=== PATIENT | female | born 1950 | race Caucasian/White ===

== ENCOUNTER 2017-07-08 21:45 | Inpatient (IN) | payer MEDICAID, OTHER ==
[~2017-07-08] VITALS: Ht 172.7 cm; Wt 82.3 kg
[~2017-07-08 21:45] MED LIST: ASPI-621 PO; ATOR-2 PO; CARB1TAB2 PO; DULO20CA45 PO; ENAL20TA PO; FURO40TA6 PO; GABA-827 PO; METF10002 PO; METO-95 PO; SPIR25TA3 PO; TEMA15CA PO; WARF4TAB7 PO; WARF5TAB7 PO
[2017-07-08 22:32] LABS: HEMATOCRIT 49.8 % (34.6-47.8); HEMOGLOBIN 15.6 g/dL (11.7-16.4); WHITE BLOOD COUNT 8.6 x10^3/uL (3.4-10)
[2017-07-08 22:37] LABS: ASPARTATE AMINO TRANSFERASE 21 U/L (15-37); BLOOD UREA NITROGEN 37 mg/dL (7-18)
[2017-07-08 22:44] LABS: IS PT STATUS REG ER OR PRE ER? YES
[2017-07-08] MEDS ORDERED: FUROSEMIDE 40 MG/4 ML IV ONE (23:00)
[2017-07-08] MEDS ORDERED: FUROSEMIDE 40 MG/4 ML ONE (23:01)
[2017-07-08] MEDS ORDERED: HEPARIN 25,000 UNITS/500ML PMX 500 ML ONE (23:30)
[2017-07-08] MEDS ORDERED: HEPARIN 25,000 UNITS/500ML PMX 500 ML IV PRN (23:30)
[2017-07-08] MEDS ORDERED: HEPARIN 5,000 UNITS/ML, 1ML IV ONE ×2 (23:30→23:45)
[2017-07-08] MEDS ORDERED: CEFTRIAXONE PMX 1GM/50ML 50 ML IV ONE (23:30)
[2017-07-08] MEDS ORDERED: HEPARIN 5,000 UNITS/ML, 1ML IV PRN (23:30)
[2017-07-08] MEDS ORDERED: HEPARIN 5,000 UNITS/ML, 1ML ONE (23:30)
[2017-07-08] MEDS ORDERED: CEFTRIAXONE PMX 2GM/50ML 0 ML ONE (23:40)
[2017-07-08] MEDS ORDERED: CEFTRIAXONE PMX 1GM/50ML 50 ML ONE (23:43)
[2017-07-09] MEDS ORDERED: DEXTROSE 4 GM TAB.CHEW PO PRN
[2017-07-09] MEDS ORDERED: morphine SULFATE 10 MG/ML, 1ML IVPush PRN
[2017-07-09] MEDS ORDERED: GLUCAGON 1 MG IM PRN
[2017-07-09] MEDS ORDERED: FLUCONAZOLE 200 MG/100 ML 100 ML IV ONE
[2017-07-09] MEDS ORDERED: DOCUSATE 100 MG CAPSULE PO PRN
[2017-07-09] MEDS ORDERED: HYDROcodone/APAP 5/325 TABLET PO PRN
[2017-07-09] MEDS ORDERED: POLYETHYLENE GLYCOL 17 GM PACKET PO PRN
[2017-07-09] MEDS ORDERED: DEXTROSE 50%, 50ML SYRINGE IVPush PRN
[2017-07-09] MEDS ORDERED: PROMETHAZINE 25 MG/ML, 1ML IM PRN
[2017-07-09] MEDS ORDERED: BISACODYL 10 MG SUPP PR PRN
[2017-07-09] MEDS ORDERED: ONDANSETRON 2MG/ML, 2ML IVPush PRN
[2017-07-09] MEDS ORDERED: NITROGLYCERIN 0.4 MG BOTTLE (25 TABS) SL PRN
[2017-07-09] MEDS: HEPARIN 25,000 UNITS/500ML PMX 500 ML IV PRN ×2 (00:20→23:40)
[2017-07-09] MEDS: ATORVASTATIN 80 MG TABLET PO SCH ×2 (01:52→21:50)
[2017-07-09 02:07] VITALS: BP 139/81
[2017-07-09 05:21] LABS: HEMATOCRIT 48.2 % (34.6-47.8); HEMOGLOBIN 14.9 g/dL (11.7-16.4); WHITE BLOOD COUNT 9.4 x10^3/uL (3.4-10)
[2017-07-09 05:38] LABS: BLOOD UREA NITROGEN 37 mg/dL (7-18)
[2017-07-09 05:39] LABS: IS PT STATUS REG ER OR PRE ER? NO
[2017-07-09] MEDS: INSULIN ASPART 100 UNITS/ML, PEN SQ-INSULIN SCH ×4 (07:00→21:51)
[2017-07-09 07:35] VITALS: BP 136/91
[2017-07-09] MEDS: HEPARIN 5,000 UNITS/ML, 1ML IV PRN ×3 (08:16→21:50)
[2017-07-09] MEDS ORDERED: METOPROLOL SUCCINATE 100 MG TAB.ER.24H PO SCH (09:00)
[2017-07-09] MEDS: SPIRONOLACTONE 25 MG TABLET PO SCH ×2 (09:00→12:08)
[2017-07-09] MEDS ORDERED: REGADENOSON 0.4 MG/5 ML SYRINGE ONE (10:15)
[2017-07-09] MEDS: FUROSEMIDE 40 MG/4 ML IV SCH ×2 (11:43→16:35)
[2017-07-09] MEDS: ASPIRIN 81 MG TABLET EC PO SCH (11:43)
[2017-07-09] MEDS: CARBIDOPA/LEVODOPA 25 MG/100 MG TABLET PO SCH ×3 (11:43→21:50)
[2017-07-09] MEDS: GABAPENTIN 400 MG CAPSULE PO SCH ×3 (11:43→21:50)
[2017-07-09] MEDS: SODIUM CHLORIDE FLUSH 10ML SYR IVF SCH ×2 (11:43→21:52)
[2017-07-09] MEDS: DULOXETINE 20 MG CAPSULE.DR PO SCH (11:44)
[2017-07-09] MEDS: ENALAPRIL 20MG TABLET PO SCH (11:44)
[2017-07-09] MEDS: CEFTRIAXONE PMX 1GM/50ML 50 ML IV SCH ×3 (11:45→23:41)
[2017-07-09 11:53] LABS: IS PT STATUS REG ER OR PRE ER? NO
[2017-07-09 13:56] VITALS: BP 99/60
[2017-07-09 19:12] VITALS: BP 96/60
[2017-07-09] MEDS ORDERED: TEMAZEPAM 15 MG CAPSULE PO PRN (21:00)
[2017-07-10] MEDS: FLUCONAZOLE 100MG/50ML 100 MG in BAG 1 EACH IV SCH (00:20)
[2017-07-10 00:58] VITALS: BP 96/58
[2017-07-10] MEDS: HEPARIN 5,000 UNITS/ML, 1ML IV PRN ×2 (04:37→16:23)
[2017-07-10 05:39] LABS: IS PT STATUS REG ER OR PRE ER? NO
[2017-07-10 05:42] LABS: BLOOD UREA NITROGEN 42 mg/dL (7-18)
[2017-07-10 05:50] LABS: HEMATOCRIT 44.5 % (34.6-47.8); HEMOGLOBIN 13.7 g/dL (11.7-16.4); WHITE BLOOD COUNT 10.6 x10^3/uL (3.4-10)
[2017-07-10 07:15] VITALS: BP 92/61
[2017-07-10] MEDS: SPIRONOLACTONE 25 MG TABLET PO SCH (08:30)
[2017-07-10] MEDS: ASPIRIN 81 MG TABLET EC PO SCH (08:30)
[2017-07-10] MEDS: DULOXETINE 20 MG CAPSULE.DR PO SCH (08:30)
[2017-07-10] MEDS: CARBIDOPA/LEVODOPA 25 MG/100 MG TABLET PO SCH ×3 (08:30→20:24)
[2017-07-10] MEDS: GABAPENTIN 400 MG CAPSULE PO SCH ×3 (08:30→20:24)
[2017-07-10] MEDS: FUROSEMIDE 40 MG/4 ML IV SCH ×2 (08:31→16:17)
[2017-07-10] MEDS: SODIUM CHLORIDE FLUSH 10ML SYR IVF SCH ×2 (08:31→20:24)
[2017-07-10] MEDS: INSULIN ASPART 100 UNITS/ML, PEN SQ-INSULIN SCH ×4 (08:32→20:23)
[2017-07-10] MEDS: METOPROLOL SUCCINATE 100 MG TAB.ER.24H PO SCH (09:00)
[2017-07-10] MEDS: CEFTRIAXONE PMX 1GM/50ML 50 ML IV SCH (12:21)
[2017-07-10 13:01] VITALS: BP 95/55
[2017-07-10] MEDS: HEPARIN 25,000 UNITS/500ML PMX 500 ML IV PRN (16:17)
[2017-07-10 18:29] VITALS: BP 105/61
[2017-07-10] MEDS: ENALAPRIL 20MG TABLET PO SCH (20:24)
[2017-07-10] MEDS: ATORVASTATIN 80 MG TABLET PO SCH (20:24)
[2017-07-11] MEDS: CEFTRIAXONE PMX 1GM/50ML 50 ML IV SCH ×3 (00:08→23:51)
[2017-07-11] MEDS: FLUCONAZOLE 100MG/50ML 100 MG in BAG 1 EACH IV SCH (01:02)
[2017-07-11 01:04] VITALS: BP 96/56
[2017-07-11 05:12] LABS: BLOOD UREA NITROGEN 41 mg/dL (7-18); WHITE BLOOD COUNT 9.9 x10^3/uL (3.4-10)
[2017-07-11] MEDS: HEPARIN 25,000 UNITS/500ML PMX 500 ML IV PRN (06:07)
[2017-07-11 07:31] VITALS: BP 100/58
[2017-07-11] MEDS ORDERED: POTASSIUM CHLORIDE 20 MEQ TAB.ER.PRT PO ONE (08:30)
[2017-07-11] MEDS: METOPROLOL SUCCINATE 100 MG TAB.ER.24H PO SCH (09:00)
[2017-07-11] MEDS: SODIUM CHLORIDE FLUSH 10ML SYR IVF SCH ×2 (09:00→21:05)
[2017-07-11] MEDS: SPIRONOLACTONE 25 MG TABLET PO SCH (09:03)
[2017-07-11] MEDS: GABAPENTIN 400 MG CAPSULE PO SCH ×3 (09:03→21:04)
[2017-07-11] MEDS: ASPIRIN 81 MG TABLET EC PO SCH (09:03)
[2017-07-11] MEDS: INSULIN ASPART 100 UNITS/ML, PEN SQ-INSULIN SCH ×4 (09:03→21:04)
[2017-07-11] MEDS: CARBIDOPA/LEVODOPA 25 MG/100 MG TABLET PO SCH ×3 (09:03→21:04)
[2017-07-11] MEDS: FUROSEMIDE 40 MG/4 ML IV SCH ×2 (09:04→17:24)
[2017-07-11] MEDS: HEPARIN 5,000 UNITS/ML, 1ML SQ SCH ×2 (09:04→17:24)
[2017-07-11] MEDS: ENALAPRIL 5MG TABLET PO SCH ×2 (09:04→21:04)
[2017-07-11] MEDS: DULOXETINE 20 MG CAPSULE.DR PO SCH (09:04)
[2017-07-11] MEDS ORDERED: FUROSEMIDE 40 MG/4 ML IV ONE (12:30)
[2017-07-11 13:26] VITALS: BP 101/60
[2017-07-11 20:13] VITALS: BP 109/57
[2017-07-11] MEDS: ATORVASTATIN 80 MG TABLET PO SCH (21:11)
[2017-07-12 01:00] VITALS: BP 118/75
[2017-07-12] MEDS: FLUCONAZOLE 100MG/50ML 100 MG in BAG 1 EACH IV SCH (01:10)
[2017-07-12] MEDS: HEPARIN 5,000 UNITS/ML, 1ML SQ SCH ×3 (01:10→16:39)
[2017-07-12 05:09] LABS: BLOOD UREA NITROGEN 39 mg/dL (7-18)
[2017-07-12 05:12] LABS: HEMATOCRIT 42.1 % (34.6-47.8); WHITE BLOOD COUNT 7.3 x10^3/uL (3.4-10)
[2017-07-12 06:25] VITALS: BP 126/71
[2017-07-12] MEDS: METOPROLOL SUCCINATE 25 MG TAB.ER.24H PO SCH (06:26)
[2017-07-12 07:06] VITALS: BP 123/65
[2017-07-12] MEDS: DULOXETINE 20 MG CAPSULE.DR PO SCH (08:46)
[2017-07-12] MEDS: SPIRONOLACTONE 25 MG TABLET PO SCH (08:46)
[2017-07-12] MEDS: ASPIRIN 81 MG TABLET EC PO SCH (08:46)
[2017-07-12] MEDS: CARBIDOPA/LEVODOPA 25 MG/100 MG TABLET PO SCH ×3 (08:46→22:13)
[2017-07-12] MEDS: POTASSIUM CHLORIDE 20 MEQ TAB.ER.PRT PO SCH (08:46)
[2017-07-12] MEDS: GABAPENTIN 400 MG CAPSULE PO SCH ×3 (08:46→22:14)
[2017-07-12] MEDS: FUROSEMIDE 40 MG/4 ML IV SCH ×3 (08:46→22:13)
[2017-07-12] MEDS: INSULIN ASPART 100 UNITS/ML, PEN SQ-INSULIN SCH ×4 (08:46→22:17)
[2017-07-12] MEDS: SODIUM CHLORIDE FLUSH 10ML SYR IVF SCH ×2 (08:47→22:12)
[2017-07-12] MEDS: ENALAPRIL 5MG TABLET PO SCH ×2 (08:47→22:14)
[2017-07-12] MEDS: CEFTRIAXONE PMX 1GM/50ML 50 ML IV SCH (11:59)
[2017-07-12 14:50] VITALS: BP 132/78
[2017-07-12] MEDS: MICAFUNGIN 50 MG in SODIUM CHLORIDE 0.9% 100 ML IV SCH (18:18)
[2017-07-12 20:40] VITALS: BP 139/70
[2017-07-12] MEDS: ATORVASTATIN 80 MG TABLET PO SCH (22:14)
[2017-07-13 00:45] VITALS: BP 138/82
[2017-07-13] MEDS: HEPARIN 5,000 UNITS/ML, 1ML SQ SCH ×3 (01:10→16:41)
[2017-07-13] MEDS: CEFTRIAXONE PMX 1GM/50ML 50 ML IV SCH ×2 (01:10→11:44)
[2017-07-13 05:50] LABS: HEMATOCRIT 43.3 % (34.6-47.8); HEMOGLOBIN 13.3 g/dL (11.7-16.4); WHITE BLOOD COUNT 7.1 x10^3/uL (3.4-10)
[2017-07-13 05:55] LABS: BLOOD UREA NITROGEN 32 mg/dL (7-18)
[2017-07-13] MEDS: POTASSIUM CHLORIDE 20 MEQ TAB.ER.PRT PO SCH (07:59)
[2017-07-13] MEDS: CARBIDOPA/LEVODOPA 25 MG/100 MG TABLET PO SCH ×3 (07:59→20:47)
[2017-07-13] MEDS: ASPIRIN 81 MG TABLET EC PO SCH (07:59)
[2017-07-13] MEDS: DULOXETINE 20 MG CAPSULE.DR PO SCH (07:59)
[2017-07-13] MEDS: FUROSEMIDE 40 MG/4 ML IV SCH ×3 (07:59→20:49)
[2017-07-13] MEDS: METOPROLOL SUCCINATE 25 MG TAB.ER.24H PO SCH (08:00)
[2017-07-13] MEDS: GABAPENTIN 400 MG CAPSULE PO SCH ×3 (08:00→20:49)
[2017-07-13] MEDS: SPIRONOLACTONE 25 MG TABLET PO SCH (08:00)
[2017-07-13] MEDS: ENALAPRIL 5MG TABLET PO SCH ×2 (08:02→20:49)
[2017-07-13] MEDS: INSULIN ASPART 100 UNITS/ML, PEN SQ-INSULIN SCH ×4 (08:03→20:46)
[2017-07-13] MEDS: SODIUM CHLORIDE FLUSH 10ML SYR IVF SCH ×2 (08:03→20:47)
[2017-07-13 08:16] VITALS: BP 129/80
[2017-07-13] MEDS ORDERED: FUROSEMIDE 40 MG/4 ML IV ONE (09:00)
[2017-07-13 14:27] VITALS: BP 140/79
[2017-07-13] MEDS: MICAFUNGIN 50 MG in SODIUM CHLORIDE 0.9% 100 ML IV SCH (16:41)
[2017-07-13 19:10] VITALS: BP 146/78
[2017-07-13] MEDS: ATORVASTATIN 80 MG TABLET PO SCH (20:46)
[2017-07-14] MEDS: CEFTRIAXONE PMX 1GM/50ML 50 ML IV SCH ×2 (00:05→12:20)
[2017-07-14] MEDS: HEPARIN 5,000 UNITS/ML, 1ML SQ SCH ×3 (00:05→20:30)
[2017-07-14 01:30] VITALS: BP 125/69
[2017-07-14] MEDS: METOPROLOL SUCCINATE 50 MG TAB.ER.24H PO SCH (06:20)
[2017-07-14 07:54] VITALS: BP 127/78
[2017-07-14 08:39] LABS: BLOOD UREA NITROGEN 26 mg/dL (7-18)
[2017-07-14] MEDS: FUROSEMIDE 40 MG/4 ML IV SCH ×2 (10:25→20:28)
[2017-07-14] MEDS: INSULIN ASPART 100 UNITS/ML, PEN SQ-INSULIN SCH ×4 (10:27→20:32)
[2017-07-14] MEDS: SPIRONOLACTONE 25 MG TABLET PO SCH (10:29)
[2017-07-14] MEDS: ASPIRIN 81 MG TABLET EC PO SCH (10:29)
[2017-07-14] MEDS: DULOXETINE 20 MG CAPSULE.DR PO SCH (10:29)
[2017-07-14] MEDS: CARBIDOPA/LEVODOPA 25 MG/100 MG TABLET PO SCH ×3 (10:29→20:29)
[2017-07-14] MEDS: GABAPENTIN 400 MG CAPSULE PO SCH ×3 (10:29→20:29)
[2017-07-14] MEDS: ENALAPRIL 5MG TABLET PO SCH ×2 (10:29→20:29)
[2017-07-14] MEDS: SODIUM CHLORIDE FLUSH 10ML SYR IVF SCH ×2 (10:29→20:28)
[2017-07-14] MEDS: POTASSIUM CHLORIDE 20 MEQ TAB.ER.PRT PO SCH (10:37)
[2017-07-14] MEDS: INSULIN DETEMIR 100 UNITS/ML, PEN SQ-INSULIN SCH (12:21)
[2017-07-14 13:10] VITALS: BP 144/80
[2017-07-14] MEDS: MICAFUNGIN 50 MG in SODIUM CHLORIDE 0.9% 100 ML IV SCH (17:48)
[2017-07-14 19:15] VITALS: BP 128/68
[2017-07-14] MEDS: ATORVASTATIN 80 MG TABLET PO SCH (22:01)
[2017-07-15] MEDS: CEFTRIAXONE PMX 1GM/50ML 50 ML IV SCH ×2 (00:10→12:42)
[2017-07-15] MEDS: INSULIN DETEMIR 100 UNITS/ML, PEN SQ-INSULIN SCH ×2 (00:11→11:49)
[2017-07-15 02:52] VITALS: BP 128/80
[2017-07-15 06:16] LABS: BLOOD UREA NITROGEN 28 mg/dL (7-18)
[2017-07-15] MEDS: METOPROLOL SUCCINATE 50 MG TAB.ER.24H PO SCH (06:22)
[2017-07-15] MEDS: HEPARIN 5,000 UNITS/ML, 1ML SQ SCH ×3 (06:22→21:44)
[2017-07-15 07:04] VITALS: BP 123/73
[2017-07-15] MEDS: SODIUM CHLORIDE 0.9% 1,000 ML IV ONE (08:11)
[2017-07-15] MEDS: INSULIN ASPART 100 UNITS/ML, PEN SQ-INSULIN SCH ×4 (09:07→21:44)
[2017-07-15] MEDS: CARBIDOPA/LEVODOPA 25 MG/100 MG TABLET PO SCH ×3 (09:07→21:45)
[2017-07-15] MEDS: ENALAPRIL 5MG TABLET PO SCH ×2 (09:07→21:45)
[2017-07-15] MEDS: SODIUM CHLORIDE FLUSH 10ML SYR IVF SCH ×2 (09:08→21:45)
[2017-07-15] MEDS: GABAPENTIN 400 MG CAPSULE PO SCH ×3 (09:08→21:45)
[2017-07-15] MEDS: DULOXETINE 20 MG CAPSULE.DR PO SCH (09:08)
[2017-07-15] MEDS: SPIRONOLACTONE 25 MG TABLET PO SCH (09:08)
[2017-07-15] MEDS: ASPIRIN 81 MG TABLET EC PO SCH (09:08)
[2017-07-15] MEDS: POTASSIUM CHLORIDE 20 MEQ TAB.ER.PRT PO SCH (09:58)
[2017-07-15] MEDS: FUROSEMIDE 40 MG/4 ML IV SCH ×2 (09:59→21:44)
[2017-07-15 14:31] VITALS: BP 122/74
[2017-07-15] MEDS: MICAFUNGIN 50 MG in SODIUM CHLORIDE 0.9% 100 ML IV SCH (17:41)
[2017-07-15 19:26] VITALS: BP 115/78
[2017-07-15] MEDS: ATORVASTATIN 80 MG TABLET PO SCH (21:45)
[2017-07-16] MEDS: CEFTRIAXONE PMX 1GM/50ML 50 ML IV SCH ×2 (00:17→17:30)
[2017-07-16 01:09] VITALS: BP 110/69
[2017-07-16 05:41] LABS: BLOOD UREA NITROGEN 26 mg/dL (7-18)
[2017-07-16 06:11] LABS: HEMOGLOBIN 13.2 g/dL (11.7-16.4)
[2017-07-16] MEDS: METOPROLOL SUCCINATE 50 MG TAB.ER.24H PO SCH (06:15)
[2017-07-16] MEDS: INSULIN ASPART 100 UNITS/ML, PEN SQ-INSULIN SCH ×5 (07:00→21:32)
[2017-07-16] MEDS ORDERED: MAGNESIUM SULFATE PMX 2GM/50ML 50 ML IV ONE ×2 (08:00→12:30)
[2017-07-16 08:30] VITALS: BP 106/60
[2017-07-16] MEDS: GABAPENTIN 400 MG CAPSULE PO SCH ×3 (09:00→21:31)
[2017-07-16] MEDS: CARBIDOPA/LEVODOPA 25 MG/100 MG TABLET PO SCH ×3 (09:00→21:31)
[2017-07-16] MEDS ORDERED: MIDAZOLAM 1 MG/ML, 5ML ONE (11:35)
[2017-07-16] MEDS ORDERED: FENTANYL PF 100 MCG/2ML ONE (11:35)
[2017-07-16] MEDS ORDERED: BIVALIRUDIN 250 MG ONE (11:36)
[2017-07-16] MEDS ORDERED: HEPARIN 1,000 UNITS/ML, 10ML ONE (11:36)
[2017-07-16] MEDS ORDERED: TICAGRELOR 90 MG TABLET ONE (11:36)
[2017-07-16] MEDS ORDERED: LIDOCAINE 2%, 20ML ONE (11:36)
[2017-07-16 14:30] VITALS: BP 145/93
[2017-07-16] MEDS: POTASSIUM CHLORIDE 20 MEQ TAB.ER.PRT PO SCH (14:36)
[2017-07-16] MEDS: FUROSEMIDE 40 MG/4 ML IV SCH (14:37)
[2017-07-16] MEDS: SPIRONOLACTONE 25 MG TABLET PO SCH (14:38)
[2017-07-16] MEDS: DULOXETINE 20 MG CAPSULE.DR PO SCH (14:38)
[2017-07-16] MEDS: SODIUM CHLORIDE FLUSH 10ML SYR IVF SCH ×2 (14:38→21:31)
[2017-07-16] MEDS: ASPIRIN 81 MG TABLET EC PO SCH (14:38)
[2017-07-16] MEDS: ENALAPRIL 5MG TABLET PO SCH ×2 (14:39→21:31)
[2017-07-16] MEDS: INSULIN DETEMIR 100 UNITS/ML, PEN SQ-INSULIN SCH ×3 (14:40→21:32)
[2017-07-16] MEDS: MICAFUNGIN 50 MG in SODIUM CHLORIDE 0.9% 100 ML IV SCH (18:21)
[2017-07-16 19:06] VITALS: BP 122/72
[2017-07-16] MEDS: ATORVASTATIN 80 MG TABLET PO SCH (21:31)
[2017-07-16] MEDS: ACETAMINOPHEN 325 MG TABLET PO PRN (21:31)
[2017-07-17] MEDS: FUROSEMIDE 40 MG/4 ML IV SCH ×2 (01:32→08:45)
[2017-07-17 02:11] VITALS: BP 115/57
[2017-07-17] MEDS: CEFTRIAXONE PMX 1GM/50ML 50 ML IV SCH ×2 (04:39→16:31)
[2017-07-17 05:08] LABS: BLOOD UREA NITROGEN 25 mg/dL (7-18)
[2017-07-17 05:38] LABS: HEMATOCRIT 43.9 % (34.6-47.8); HEMOGLOBIN 13.5 g/dL (11.7-16.4); WHITE BLOOD COUNT 7.1 x10^3/uL (3.4-10)
[2017-07-17] MEDS: ACETAMINOPHEN 325 MG TABLET PO PRN (06:33)
[2017-07-17] MEDS: METOPROLOL SUCCINATE 50 MG TAB.ER.24H PO SCH (06:33)
[2017-07-17] MEDS: INSULIN ASPART 100 UNITS/ML, PEN SQ-INSULIN SCH ×4 (06:37→20:21)
[2017-07-17 07:30] VITALS: BP 128/66
[2017-07-17] MEDS: ASPIRIN 81 MG TABLET EC PO SCH (08:45)
[2017-07-17] MEDS: SPIRONOLACTONE 25 MG TABLET PO SCH (08:45)
[2017-07-17] MEDS: SODIUM CHLORIDE FLUSH 10ML SYR IVF SCH ×2 (08:45→20:19)
[2017-07-17] MEDS: DULOXETINE 20 MG CAPSULE.DR PO SCH (08:45)
[2017-07-17] MEDS: POTASSIUM CHLORIDE 20 MEQ TAB.ER.PRT PO SCH (08:45)
[2017-07-17] MEDS: ENALAPRIL 5MG TABLET PO SCH ×2 (08:46→20:19)
[2017-07-17] MEDS: CARBIDOPA/LEVODOPA 25 MG/100 MG TABLET PO SCH ×3 (08:46→20:19)
[2017-07-17] MEDS: GABAPENTIN 400 MG CAPSULE PO SCH ×3 (08:46→20:19)
[2017-07-17] MEDS: INSULIN DETEMIR 100 UNITS/ML, PEN SQ-INSULIN SCH ×2 (11:22→23:16)
[2017-07-17 13:59] VITALS: BP 106/54
[2017-07-17] MEDS ORDERED: ONDANSETRON 2MG/ML, 2ML IVPush PRN (15:00)
[2017-07-17] MEDS ORDERED: HYDROcodone/APAP 5/325 TABLET PO PRN (15:00)
[2017-07-17] MEDS ORDERED: DOCUSATE 100 MG CAPSULE PO PRN (15:00)
[2017-07-17] MEDS ORDERED: TEMAZEPAM 15 MG CAPSULE PO PRN (15:00)
[2017-07-17] MEDS ORDERED: DEXTROSE 50%, 50ML SYRINGE IVPush PRN (15:00)
[2017-07-17] MEDS ORDERED: DEXTROSE 4 GM TAB.CHEW PO PRN (15:00)
[2017-07-17] MEDS ORDERED: GLUCAGON 1 MG IM PRN (15:00)
[2017-07-17] MEDS ORDERED: BISACODYL 10 MG SUPP PR PRN (15:00)
[2017-07-17] MEDS ORDERED: POLYETHYLENE GLYCOL 17 GM PACKET PO PRN (15:00)
[2017-07-17] MEDS ORDERED: morphine SULFATE 10 MG/ML, 1ML IVPush PRN (15:00)
[2017-07-17] MEDS ORDERED: NITROGLYCERIN 0.4 MG BOTTLE (25 TABS) SL PRN (15:00)
[2017-07-17] MEDS ORDERED: PROMETHAZINE 25 MG/ML, 1ML IM PRN (15:00)
[2017-07-17] MEDS: FUROSEMIDE 80 MG TABLET PO SCH (16:31)
[2017-07-17] MEDS: MICAFUNGIN 50 MG in SODIUM CHLORIDE 0.9% 100 ML IV SCH (16:37)
[2017-07-17 18:23] VITALS: BP 122/75
[2017-07-17] MEDS: ATORVASTATIN 80 MG TABLET PO SCH (20:19)
[2017-07-18 01:48] VITALS: BP 119/65
[2017-07-18 04:33] LABS: BLOOD UREA NITROGEN 31 mg/dL (7-18)
[2017-07-18 05:09] VITALS: BP 123/53
[2017-07-18] MEDS: METOPROLOL SUCCINATE 50 MG TAB.ER.24H PO SCH (05:10)
[2017-07-18] MEDS: CEFTRIAXONE PMX 1GM/50ML 50 ML IV SCH ×2 (05:11→17:50)
[2017-07-18] MEDS: INSULIN ASPART 100 UNITS/ML, PEN SQ-INSULIN SCH ×4 (07:00→21:35)
[2017-07-18 08:18] VITALS: BP 115/64
[2017-07-18] MEDS: SODIUM CHLORIDE FLUSH 10ML SYR IVF SCH ×2 (09:56→21:34)
[2017-07-18] MEDS: POTASSIUM CHLORIDE 20 MEQ TAB.ER.PRT PO SCH (09:56)
[2017-07-18] MEDS: SPIRONOLACTONE 25 MG TABLET PO SCH (09:56)
[2017-07-18] MEDS: ASPIRIN 81 MG TABLET EC PO SCH (09:56)
[2017-07-18] MEDS: DULOXETINE 20 MG CAPSULE.DR PO SCH (09:56)
[2017-07-18] MEDS: FUROSEMIDE 80 MG TABLET PO SCH ×2 (09:57→18:00)
[2017-07-18] MEDS: CARBIDOPA/LEVODOPA 25 MG/100 MG TABLET PO SCH ×3 (09:57→21:34)
[2017-07-18] MEDS: GABAPENTIN 400 MG CAPSULE PO SCH ×3 (09:57→21:34)
[2017-07-18] MEDS: ENALAPRIL 5MG TABLET PO SCH ×2 (09:57→21:34)
[2017-07-18] MEDS: INSULIN DETEMIR 100 UNITS/ML, PEN SQ-INSULIN SCH ×2 (12:11→23:37)
[2017-07-18 14:44] VITALS: BP 120/75
[2017-07-18] MEDS: HEPARIN 5,000 UNITS/ML, 1ML SQ SCH ×2 (16:25→23:37)
[2017-07-18] MEDS: MICAFUNGIN 50 MG in SODIUM CHLORIDE 0.9% 100 ML IV SCH (16:38)
[2017-07-18] MEDS: ATORVASTATIN 80 MG TABLET PO SCH (21:34)
[2017-07-18 21:37] VITALS: BP 123/63
[2017-07-18] MEDS: ACETAMINOPHEN 325 MG TABLET PO PRN (23:37)
[2017-07-19 01:48] VITALS: BP 108/64
[2017-07-19] MEDS: CEFTRIAXONE PMX 1GM/50ML 50 ML IV SCH ×2 (04:58→17:34)
[2017-07-19] MEDS: METOPROLOL SUCCINATE 50 MG TAB.ER.24H PO SCH (04:58)
[2017-07-19] MEDS: ACETAMINOPHEN 325 MG TABLET PO PRN (04:58)
[2017-07-19 04:59] VITALS: BP 133/69
[2017-07-19 05:05] LABS: BLOOD UREA NITROGEN 32 mg/dL (7-18)
[2017-07-19 05:08] LABS: ASPARTATE AMINO TRANSFERASE 22 U/L (15-37)
[2017-07-19 06:35] VITALS: BP 119/77
[2017-07-19] MEDS: INSULIN ASPART 100 UNITS/ML, PEN SQ-INSULIN SCH ×4 (07:00→21:23)
[2017-07-19] MEDS: FUROSEMIDE 80 MG TABLET PO SCH ×2 (08:06→17:00)
[2017-07-19] MEDS: POTASSIUM CHLORIDE 20 MEQ TAB.ER.PRT PO SCH (08:06)
[2017-07-19] MEDS: DULOXETINE 20 MG CAPSULE.DR PO SCH (08:06)
[2017-07-19] MEDS: HEPARIN 5,000 UNITS/ML, 1ML SQ SCH ×2 (08:06→17:35)
[2017-07-19] MEDS: GABAPENTIN 400 MG CAPSULE PO SCH ×3 (08:06→21:22)
[2017-07-19] MEDS: CARBIDOPA/LEVODOPA 25 MG/100 MG TABLET PO SCH ×3 (08:06→21:22)
[2017-07-19] MEDS: ASPIRIN 81 MG TABLET EC PO SCH (08:06)
[2017-07-19] MEDS: ENALAPRIL 5MG TABLET PO SCH (08:06)
[2017-07-19] MEDS: SPIRONOLACTONE 25 MG TABLET PO SCH (08:06)
[2017-07-19] MEDS: SODIUM CHLORIDE FLUSH 10ML SYR IVF SCH ×2 (08:07→21:24)
[2017-07-19] MEDS: INSULIN DETEMIR 100 UNITS/ML, PEN SQ-INSULIN SCH ×2 (11:35→21:24)
[2017-07-19] MEDS ORDERED: FUROSEMIDE 40 MG TABLET ONE (17:29)
[2017-07-19] MEDS: MICAFUNGIN 50 MG in SODIUM CHLORIDE 0.9% 100 ML IV SCH (17:35)
[2017-07-19 17:47] VITALS: BP 136/72
[2017-07-19 21:03] VITALS: BP 122/65
[2017-07-19] MEDS: ATORVASTATIN 80 MG TABLET PO SCH (21:22)
[2017-07-19] MEDS: ENALAPRIL 10 MG TABLET PO SCH (21:23)
[2017-07-20] VITALS (7 sets, daily range): BP systolic 98–132; BP diastolic 61–72
[2017-07-20] MEDS: HEPARIN 5,000 UNITS/ML, 1ML SQ SCH ×3 (00:50→17:08)
[2017-07-20] MEDS: METOPROLOL SUCCINATE 50 MG TAB.ER.24H PO SCH (05:29)
[2017-07-20] MEDS: CEFTRIAXONE PMX 1GM/50ML 50 ML IV SCH ×2 (05:30→17:08)
[2017-07-20 06:10] LABS: BLOOD UREA NITROGEN 38 mg/dL (7-18)
[2017-07-20] MEDS: CARBIDOPA/LEVODOPA 25 MG/100 MG TABLET PO SCH ×3 (07:56→22:22)
[2017-07-20] MEDS: SODIUM CHLORIDE FLUSH 10ML SYR IVF SCH ×2 (07:56→22:22)
[2017-07-20] MEDS: ENALAPRIL 10 MG TABLET PO SCH ×2 (07:56→22:23)
[2017-07-20] MEDS: GABAPENTIN 400 MG CAPSULE PO SCH ×3 (07:56→22:22)
[2017-07-20] MEDS: POTASSIUM CHLORIDE 20 MEQ TAB.ER.PRT PO SCH (07:57)
[2017-07-20] MEDS: DULOXETINE 20 MG CAPSULE.DR PO SCH (07:57)
[2017-07-20] MEDS: ASPIRIN 81 MG TABLET EC PO SCH (07:57)
[2017-07-20] MEDS: FUROSEMIDE 80 MG TABLET PO SCH ×2 (07:57→18:22)
[2017-07-20] MEDS: SPIRONOLACTONE 25 MG TABLET PO SCH (07:57)
[2017-07-20] MEDS: INSULIN ASPART 100 UNITS/ML, PEN SQ-INSULIN SCH ×4 (07:58→22:22)
[2017-07-20] MEDS: INSULIN DETEMIR 100 UNITS/ML, PEN SQ-INSULIN SCH (11:57)
[2017-07-20] MEDS: MICAFUNGIN 50 MG in SODIUM CHLORIDE 0.9% 100 ML IV SCH (18:22)
[2017-07-20] MEDS: ATORVASTATIN 80 MG TABLET PO SCH (22:22)
[2017-07-21] MEDS: HEPARIN 5,000 UNITS/ML, 1ML SQ SCH ×3 (00:47→17:08)
[2017-07-21] MEDS: INSULIN DETEMIR 100 UNITS/ML, PEN SQ-INSULIN SCH ×3 (00:48→21:36)
[2017-07-21 00:52] VITALS: BP 115/70
[2017-07-21 04:41] LABS: BLOOD UREA NITROGEN 36 mg/dL (7-18)
[2017-07-21] MEDS: CEFTRIAXONE PMX 1GM/50ML 50 ML IV SCH ×2 (05:56→17:07)
[2017-07-21] MEDS: METOPROLOL SUCCINATE 50 MG TAB.ER.24H PO SCH (06:00)
[2017-07-21 07:45] VITALS: BP 106/68
[2017-07-21] MEDS: DULOXETINE 20 MG CAPSULE.DR PO SCH (07:50)
[2017-07-21] MEDS: GABAPENTIN 400 MG CAPSULE PO SCH ×3 (07:50→21:21)
[2017-07-21] MEDS: ENALAPRIL 10 MG TABLET PO SCH (07:51)
[2017-07-21] MEDS: ASPIRIN 81 MG TABLET EC PO SCH (07:51)
[2017-07-21] MEDS: CARBIDOPA/LEVODOPA 25 MG/100 MG TABLET PO SCH ×3 (07:51→21:21)
[2017-07-21] MEDS: POTASSIUM CHLORIDE 20 MEQ TAB.ER.PRT PO SCH (07:51)
[2017-07-21] MEDS: SPIRONOLACTONE 25 MG TABLET PO SCH (07:51)
[2017-07-21] MEDS: SODIUM CHLORIDE FLUSH 10ML SYR IVF SCH ×2 (07:51→21:21)
[2017-07-21] MEDS: FUROSEMIDE 80 MG TABLET PO SCH ×2 (07:51→17:08)
[2017-07-21] MEDS: INSULIN ASPART 100 UNITS/ML, PEN SQ-INSULIN SCH ×4 (07:52→21:34)
[2017-07-21 08:11] VITALS: BP 110/67
[2017-07-21 14:30] VITALS: BP 111/71
[2017-07-21] MEDS ORDERED: CEFAZOLIN PMX 1GM/50ML 50 ML IVPB ONE (15:00)
[2017-07-21] MEDS: MICAFUNGIN 50 MG in SODIUM CHLORIDE 0.9% 100 ML IV SCH (17:35)
[2017-07-21 19:06] VITALS: BP 125/73
[2017-07-21] MEDS: ATORVASTATIN 80 MG TABLET PO SCH (21:21)
[2017-07-21] MEDS: ENALAPRIL 20MG TABLET PO SCH (21:22)
[2017-07-22 00:14] VITALS: BP_SYST 105; BP_SYST 110; BP_DIAS 57; BP_DIAS 58; BP_DIAS 64
[2017-07-22 06:01] LABS: BLOOD UREA NITROGEN 44 mg/dL (7-18)
[2017-07-22] MEDS: CEFTRIAXONE PMX 1GM/50ML 50 ML IV SCH (06:22)
[2017-07-22 06:30] VITALS: BP 142/82
[2017-07-22] MEDS: METOPROLOL SUCCINATE 50 MG TAB.ER.24H PO SCH (06:31)
[2017-07-22] MEDS: INSULIN ASPART 100 UNITS/ML, PEN SQ-INSULIN SCH ×4 (07:00→20:40)
[2017-07-22 07:45] VITALS: BP 120/71
[2017-07-22] MEDS: POTASSIUM CHLORIDE 20 MEQ TAB.ER.PRT PO SCH (08:15)
[2017-07-22] MEDS: DULOXETINE 20 MG CAPSULE.DR PO SCH (08:15)
[2017-07-22] MEDS: SODIUM CHLORIDE FLUSH 10ML SYR IVF SCH ×3 (08:15→20:38)
[2017-07-22] MEDS: FUROSEMIDE 80 MG TABLET PO SCH (08:15)
[2017-07-22] MEDS: CARBIDOPA/LEVODOPA 25 MG/100 MG TABLET PO SCH ×3 (08:16→20:38)
[2017-07-22] MEDS: SPIRONOLACTONE 25 MG TABLET PO SCH (08:16)
[2017-07-22] MEDS: ASPIRIN 81 MG TABLET EC PO SCH (08:16)
[2017-07-22] MEDS: INSULIN DETEMIR 100 UNITS/ML, PEN SQ-INSULIN SCH ×2 (08:16→20:39)
[2017-07-22] MEDS: ENALAPRIL 20MG TABLET PO SCH ×2 (08:16→20:38)
[2017-07-22] MEDS: GABAPENTIN 400 MG CAPSULE PO SCH ×3 (08:16→20:38)
[2017-07-22 12:29] VITALS: BP 130/80
[2017-07-22] MEDS ORDERED: FENTANYL PF 100 MCG/2ML ONE (12:57)
[2017-07-22] MEDS ORDERED: VANCOMYCIN PMX 1GM/200ML 200 ML ONE (12:57)
[2017-07-22] MEDS ORDERED: LIDOCAINE 2%, 20ML ONE (12:57)
[2017-07-22] MEDS ORDERED: VANCOMYCIN 500 MG ONE (12:57)
[2017-07-22] MEDS ORDERED: MIDAZOLAM 1 MG/ML, 5ML ONE (12:57)
[2017-07-22] MEDS ORDERED: HYDROcodone/APAP 5/325 TABLET PO PRN (14:30)
[2017-07-22] MEDS ORDERED: FUROSEMIDE 40 MG TABLET ONE (15:36)
[2017-07-22] MEDS: FUROSEMIDE 40 MG TABLET PO SCH (15:40)
[2017-07-22] MEDS: MICAFUNGIN 50 MG in SODIUM CHLORIDE 0.9% 100 ML IV SCH (16:30)
[2017-07-22 20:00] VITALS: BP 105/62
[2017-07-22 20:34] VITALS: BP 98/62
[2017-07-22] MEDS: ATORVASTATIN 80 MG TABLET PO SCH (20:38)
[2017-07-23] MEDS ORDERED: VANCOMYCIN PMX 1GM/200ML 200 ML IVPB ONE (01:00)
[2017-07-23 01:20] VITALS: BP_SYST 110; BP_SYST 71; BP_SYST 91; BP_DIAS 45; BP_DIAS 53; BP_DIAS 61
[2017-07-23 05:33] VITALS: BP 114/71
[2017-07-23 05:34] LABS: BLOOD UREA NITROGEN 40 mg/dL (7-18)
[2017-07-23 05:37] VITALS: BP 114/71
[2017-07-23 06:29] VITALS: BP 108/65
[2017-07-23] MEDS: METOPROLOL SUCCINATE 50 MG TAB.ER.24H PO SCH (06:30)
[2017-07-23] MEDS: INSULIN ASPART 100 UNITS/ML, PEN SQ-INSULIN SCH ×2 (07:00→11:34)
[2017-07-23 07:41] VITALS: BP 118/66
[2017-07-23] MEDS ORDERED: POTASSIUM CHLORIDE 20 MEQ TAB.ER.PRT PO SCH (08:00)
[2017-07-23] MEDS: FUROSEMIDE 40 MG TABLET PO SCH (08:29)
[2017-07-23] MEDS: SODIUM CHLORIDE FLUSH 10ML SYR IVF SCH ×2 (08:29)
[2017-07-23] MEDS: GABAPENTIN 400 MG CAPSULE PO SCH (08:30)
[2017-07-23] MEDS: CARBIDOPA/LEVODOPA 25 MG/100 MG TABLET PO SCH (08:30)
[2017-07-23] MEDS: SPIRONOLACTONE 25 MG TABLET PO SCH (08:30)
[2017-07-23] MEDS: DULOXETINE 20 MG CAPSULE.DR PO SCH (08:30)
[2017-07-23] MEDS: ENALAPRIL 20MG TABLET PO SCH (08:30)
[2017-07-23] MEDS: ASPIRIN 81 MG TABLET EC PO SCH (08:30)
[2017-07-23] MEDS: INSULIN DETEMIR 100 UNITS/ML, PEN SQ-INSULIN SCH (08:31)
[2017-07-23] MEDS ORDERED: FURO40TA6 PO (10:16)
[2017-07-23] MEDS ORDERED: ENAL20TA PO (10:16)
[2017-07-23] MEDS ORDERED: POTA20TA6 PO (10:16)
[2017-07-23] MEDS ORDERED: METO-93 PO (10:16)
[2017-07-23 13:28] VITALS: BP 93/58
[2017-07-23] MEDS ORDERED: MULT-516 PO (15:07)
== END 2017-07-23 15:31 | disposition home or self-care (01) | DRG 222 ==
LOC: SUATTDRO 23:32 → ED 23:34 → EDIP 23:35 → ED 07-09 00:06 → 5SO 07-09 00:51 → ICU 07-16 23:10 → 5SO 07-19 15:38 → DCLOUNGE 07-23 15:01
PROC: 4A023N7 Measurement of Cardiac Sampling and Pressure, Left Heart, Percutaneous Approach (ICD-10-PCS; principal; 2017-07-16)
PROC: B2111ZZ Fluoroscopy of Multiple Coronary Arteries using Low Osmolar Contrast (ICD-10-PCS; 2017-07-16)
PROC: B2181ZZ Fluoroscopy of Left Internal Mammary Bypass Graft using Low Osmolar Contrast (ICD-10-PCS; 2017-07-16)
PROC: B2151ZZ Fluoroscopy of Left Heart using Low Osmolar Contrast (ICD-10-PCS; 2017-07-16)
PROC: B2131ZZ Fluoroscopy of Multiple Coronary Artery Bypass Grafts using Low Osmolar Contrast (ICD-10-PCS; 2017-07-16)
PROC: 0JH608Z Insertion of Defibrillator Generator into Chest Subcutaneous Tissue and Fascia, Open Approach (ICD-10-PCS; 2017-07-22)
PROC: 02HK3KZ Insertion of Defibrillator Lead into Right Ventricle, Percutaneous Approach (ICD-10-PCS; 2017-07-22)
PROC: 02H63KZ Insertion of Defibrillator Lead into Right Atrium, Percutaneous Approach (ICD-10-PCS; 2017-07-22)
DX: I21.4 Non-ST elevation (NSTEMI) myocardial infarction (principal); J96.20 Acute and chronic respiratory failure, unspecified whether with hypoxia or hypercapnia; N17.0 Acute kidney failure with tubular necrosis; I50.43 Acute on chronic combined systolic (congestive) and diastolic (congestive) heart failure; I47.2 Ventricular tachycardia; I95.9 Hypotension, unspecified; I13.0 Hypertensive heart and chronic kidney disease with heart failure and stage 1 through stage 4 chronic kidney disease, or unspecified chronic kidney disease; D68.59 Other primary thrombophilia; E44.0 Moderate protein-calorie malnutrition; E87.1 Hypo-osmolality and hyponatremia; N39.0 Urinary tract infection, site not specified; E11.22 Type 2 diabetes mellitus with diabetic chronic kidney disease; I48.91 Unspecified atrial fibrillation; E11.42 Type 2 diabetes mellitus with diabetic polyneuropathy; B37.2 Candidiasis of skin and nail; E66.01 Morbid (severe) obesity due to excess calories; I44.7 Left bundle-branch block, unspecified; E11.65 Type 2 diabetes mellitus with hyperglycemia; I25.5 Ischemic cardiomyopathy; N18.9 Chronic kidney disease, unspecified; F41.9 Anxiety disorder, unspecified; E78.5 Hyperlipidemia, unspecified; G20 Parkinson's disease; I25.10 Atherosclerotic heart disease of native coronary artery without angina pectoris; I25.2 Old myocardial infarction; Z72.0 Tobacco use; Z86.718 Personal history of other venous thrombosis and embolism; Z86.73 Personal history of transient ischemic attack (TIA), and cerebral infarction without residual deficits; Z95.1 Presence of aortocoronary bypass graft; Z95.810 Presence of automatic (implantable) cardiac defibrillator; Z99.81 Dependence on supplemental oxygen; Z79.899 Other long term (current) drug therapy; Z79.82 Long term (current) use of aspirin; Z68.27 Body mass index [BMI] 27.0-27.9, adult
CPT/HCPCS: 33249; 36415; 71010; 71020; 78452; 80048; 80053; 80061; 81001; 82947; 82962; 83036; 83735; 83880; 84484; 85025; 85520; 85610; 85730; 87081; 87086; 87106; 93005; 93017; 93306; 93459; 93970; 96365; 96375; 99156; 99157; C1721; C1779; C1892; C1894; C1895; J0583; J0696; J1644; J1815; J1940; J2248; J2250; J2785; J3010; J3370; J3490; A9502; C9898; J1450; J3475; Q9967

== ENCOUNTER 2017-11-12 19:00 | Inpatient (IN) | payer OTHER ==
[~2017-11-12] VITALS: Ht 172.7 cm; Wt 92.1 kg
[~2017-11-12 19:00] MED LIST changes: +METO-93 PO; +MULT-516 PO; +POTA20TA6 PO
[2017-11-12] MEDS ORDERED: PLEASE ENTER HEIGHT AND WEIGHT MC SCH (19:30)
[2017-11-12] MEDS ORDERED: SODIUM CHLORIDE 0.9% 1,000ML IVBOLUS ONE (19:30)
[2017-11-12] MEDS ORDERED: ONDANSETRON 2MG/ML, 2ML IVPush ONE (19:30)
[2017-11-12 19:55] LABS: HEMATOCRIT 41.4 % (34.6-47.8); HEMOGLOBIN 13.3 g/dL (11.7-16.4); WHITE BLOOD COUNT 8.4 x10^3/uL (3.4-10)
[2017-11-12] MEDS ORDERED: CEFTRIAXONE PMX 1GM/50ML 50 ML ONE (19:55)
[2017-11-12] MEDS ORDERED: AZITHROMYCIN 500 MG in SODIUM CHLORIDE 0.9% 250 ML IVPB ONE (20:00)
[2017-11-12] MEDS ORDERED: CEFTRIAXONE PMX 1GM/50ML 50 ML IVPB ONE (20:00)
[2017-11-12 20:03] LABS: PH, VENOUS 7.421 pH (7.320-7.420)
[2017-11-12 20:10] LABS: ASPARTATE AMINO TRANSFERASE 26 U/L (15-37); BLOOD UREA NITROGEN 20 mg/dL (7-18)
[2017-11-12] MEDS ORDERED: FUROSEMIDE 40 MG/4 ML IV ONE (20:30)
[2017-11-12] MEDS ORDERED: INSULIN REGULAR 100 UNITS/ML, 3ML VIAL SQ-INSULIN ONE (20:30)
[2017-11-12] MEDS ORDERED: FUROSEMIDE 40 MG/4 ML ONE (20:42)
[2017-11-12 20:49] LABS: IS PT STATUS REG ER OR PRE ER? YES
[2017-11-12] MEDS ORDERED: ONDANSETRON 2MG/ML, 2ML ONE (20:49)
[2017-11-12] MEDS ORDERED: ASPIRIN 325 MG TABLET PO ONE (21:00)
[2017-11-12] MEDS: CARBIDOPA/LEVODOPA 25 MG/100 MG TABLET PO SCH (22:00)
[2017-11-12] MEDS ORDERED: TEMAZEPAM 15 MG CAPSULE PO PRN (22:00)
[2017-11-12] MEDS ORDERED: GUAIFENESIN/DM 200-20MG, 10ML UDC PO PRN (22:00)
[2017-11-12] MEDS ORDERED: ONDANSETRON ODT 4 MG PO PRN (22:00)
[2017-11-12] MEDS ORDERED: ACETAMINOPHEN 325 MG TABLET PO PRN (22:00)
[2017-11-12] MEDS ORDERED: hydrALAzine 20 MG/ML, 1ML IVPush PRN (22:00)
[2017-11-12] MEDS: GABAPENTIN 400 MG CAPSULE PO SCH (22:00)
[2017-11-12] MEDS: ENALAPRIL 10 MG TABLET PO SCH (22:00)
[2017-11-12] MEDS ORDERED: DOCUSATE 100 MG CAPSULE PO PRN (22:00)
[2017-11-12 23:20] VITALS: BP 122/66
[2017-11-12] MEDS ORDERED: ALBUTEROL/IPRATROPIUM 2.5MG/0.5MG, 3 ML ONE (23:44)
[2017-11-12] MEDS: ALBUTEROL/IPRATROPIUM 2.5MG/0.5MG, 3 ML NPPB SCH (23:45)
[2017-11-13 00:53] VITALS: BP 107/63
[2017-11-13 02:12] LABS: IS PT STATUS REG ER OR PRE ER? NO
[2017-11-13] MEDS: INSULIN ASPART 100 UNITS/ML, PEN SQ-INSULIN SCH ×4 (07:00→21:03)
[2017-11-13] MEDS: ALBUTEROL/IPRATROPIUM 2.5MG/0.5MG, 3 ML NPPB SCH ×4 (07:00→20:00)
[2017-11-13] MEDS: FUROSEMIDE 40 MG/4 ML IV SCH ×2 (07:30→16:56)
[2017-11-13 07:51] VITALS: BP 117/67
[2017-11-13] MEDS: POTASSIUM CHLORIDE 20 MEQ TAB.ER.PRT PO SCH (08:00)
[2017-11-13] MEDS: CEFTRIAXONE PMX 1GM/50ML 50 ML IV SCH ×2 (08:00→20:56)
[2017-11-13 08:12] LABS: IS PT STATUS REG ER OR PRE ER? NO
[2017-11-13] MEDS: CARBIDOPA/LEVODOPA 25 MG/100 MG TABLET PO SCH ×3 (09:00→20:59)
[2017-11-13] MEDS: GABAPENTIN 400 MG CAPSULE PO SCH ×3 (09:00→21:00)
[2017-11-13] MEDS: ENALAPRIL 10 MG TABLET PO SCH ×2 (09:00→21:00)
[2017-11-13 09:35] LABS: HEMATOCRIT 40.2 % (34.6-47.8); HEMOGLOBIN 12.8 g/dL (11.7-16.4); WHITE BLOOD COUNT 7.9 x10^3/uL (3.4-10)
[2017-11-13] MEDS ORDERED: METOPROLOL SUCCINATE 50 MG TAB.ER.24H PO SCH (10:00)
[2017-11-13] MEDS: ENOXAPARIN 40 MG/0.4 ML SQ SCH (10:00)
[2017-11-13 10:44] VITALS: BP 151/71
[2017-11-13] MEDS ORDERED: MAGNESIUM SULFATE PMX 2GM/50ML 50 ML IV ONE (12:00)
[2017-11-13 12:22] LABS: IS PT STATUS REG ER OR PRE ER? NO
[2017-11-13 13:19] VITALS: BP 117/64
[2017-11-13 16:57] VITALS: BP 89/54
[2017-11-13 19:07] VITALS: BP 99/65
[2017-11-13] MEDS: AZITHROMYCIN 500 MG in SODIUM CHLORIDE 0.9% 250 ML IV SCH (21:30)
[2017-11-14 00:53] VITALS: BP 91/55
[2017-11-14 05:58] VITALS: BP 112/75
[2017-11-14] MEDS: METOPROLOL SUCCINATE 50 MG TAB.ER.24H PO SCH (06:01)
[2017-11-14] MEDS: INSULIN ASPART 100 UNITS/ML, PEN SQ-INSULIN SCH ×4 (07:00→20:07)
[2017-11-14 07:20] VITALS: BP 103/65
[2017-11-14] MEDS: FUROSEMIDE 40 MG/4 ML IV SCH (07:30)
[2017-11-14] MEDS: ALBUTEROL/IPRATROPIUM 2.5MG/0.5MG, 3 ML NPPB SCH ×4 (07:42→20:25)
[2017-11-14] MEDS: ENALAPRIL 10 MG TABLET PO SCH ×2 (08:12→20:01)
[2017-11-14] MEDS: FUROSEMIDE 40 MG TABLET PO SCH (08:12)
[2017-11-14] MEDS: CEFTRIAXONE PMX 1GM/50ML 50 ML IV SCH ×2 (08:12→20:00)
[2017-11-14] MEDS: CARBIDOPA/LEVODOPA 25 MG/100 MG TABLET PO SCH ×3 (08:12→20:00)
[2017-11-14] MEDS: POTASSIUM CHLORIDE 20 MEQ TAB.ER.PRT PO SCH (08:12)
[2017-11-14] MEDS: GABAPENTIN 400 MG CAPSULE PO SCH ×3 (08:12→20:00)
[2017-11-14 09:11] LABS: HEMATOCRIT 42.2 % (34.6-47.8); HEMOGLOBIN 13.4 g/dL (11.7-16.4); WHITE BLOOD COUNT 7.6 x10^3/uL (3.4-10)
[2017-11-14 09:22] LABS: BLOOD UREA NITROGEN 25 mg/dL (7-18)
[2017-11-14] MEDS: ENOXAPARIN 40 MG/0.4 ML SQ SCH (11:16)
[2017-11-14 12:40] VITALS: BP 104/66
[2017-11-14 19:54] VITALS: BP 125/73
[2017-11-14] MEDS: AZITHROMYCIN 500 MG in SODIUM CHLORIDE 0.9% 250 ML IV SCH (22:44)
[2017-11-15 01:46] VITALS: BP 100/67
[2017-11-15 05:41] LABS: HEMATOCRIT 38.1 % (34.6-47.8); HEMOGLOBIN 12.2 g/dL (11.7-16.4); WHITE BLOOD COUNT 6.3 x10^3/uL (3.4-10)
[2017-11-15 06:03] LABS: BLOOD UREA NITROGEN 33 mg/dL (7-18)
[2017-11-15] MEDS: METOPROLOL SUCCINATE 50 MG TAB.ER.24H PO SCH (06:21)
[2017-11-15 07:54] VITALS: BP 120/71
[2017-11-15] MEDS: ALBUTEROL/IPRATROPIUM 2.5MG/0.5MG, 3 ML NPPB SCH ×2 (08:17→19:56)
[2017-11-15] MEDS: FUROSEMIDE 40 MG TABLET PO SCH (08:31)
[2017-11-15] MEDS: ENALAPRIL 10 MG TABLET PO SCH ×2 (08:31→19:57)
[2017-11-15] MEDS: GABAPENTIN 400 MG CAPSULE PO SCH ×3 (08:31→19:57)
[2017-11-15] MEDS: CARBIDOPA/LEVODOPA 25 MG/100 MG TABLET PO SCH ×3 (08:31→19:57)
[2017-11-15] MEDS: INSULIN ASPART 100 UNITS/ML, PEN SQ-INSULIN SCH ×4 (08:31→20:03)
[2017-11-15] MEDS: POTASSIUM CHLORIDE 20 MEQ TAB.ER.PRT PO SCH (08:31)
[2017-11-15] MEDS: CEFTRIAXONE PMX 1GM/50ML 50 ML IV SCH ×2 (08:32→19:57)
[2017-11-15] MEDS: ENOXAPARIN 40 MG/0.4 ML SQ SCH (11:14)
[2017-11-15 14:08] VITALS: BP 110/68
[2017-11-15 19:34] VITALS: BP 112/71
[2017-11-15] MEDS: AZITHROMYCIN 500 MG in SODIUM CHLORIDE 0.9% 250 ML IV SCH (22:20)
[2017-11-16 01:35] VITALS: BP 124/79
[2017-11-16 05:17] LABS: HEMATOCRIT 40.6 % (34.6-47.8); WHITE BLOOD COUNT 5.6 x10^3/uL (3.4-10)
[2017-11-16 05:44] LABS: BLOOD UREA NITROGEN 33 mg/dL (7-18)
[2017-11-16] MEDS: METOPROLOL SUCCINATE 50 MG TAB.ER.24H PO SCH (06:34)
[2017-11-16 06:45] VITALS: BP 128/79
[2017-11-16] MEDS: ALBUTEROL/IPRATROPIUM 2.5MG/0.5MG, 3 ML NPPB SCH ×3 (06:50→15:50)
[2017-11-16] MEDS: CEFTRIAXONE PMX 1GM/50ML 50 ML IV SCH ×2 (09:03→21:14)
[2017-11-16] MEDS: GABAPENTIN 400 MG CAPSULE PO SCH ×3 (09:04→21:14)
[2017-11-16] MEDS: BENZONATATE 100 MG CAPSULE PO SCH ×3 (09:04→21:14)
[2017-11-16] MEDS: INSULIN ASPART 100 UNITS/ML, PEN SQ-INSULIN SCH ×4 (09:04→21:37)
[2017-11-16] MEDS: CARBIDOPA/LEVODOPA 25 MG/100 MG TABLET PO SCH ×3 (09:04→21:14)
[2017-11-16] MEDS: FUROSEMIDE 40 MG TABLET PO SCH (09:04)
[2017-11-16] MEDS: POTASSIUM CHLORIDE 20 MEQ TAB.ER.PRT PO SCH (09:04)
[2017-11-16] MEDS: ENALAPRIL 10 MG TABLET PO SCH ×2 (09:05→21:15)
[2017-11-16] MEDS: ENOXAPARIN 40 MG/0.4 ML SQ SCH (09:09)
[2017-11-16 09:54] LABS: BLOOD UREA NITROGEN 29 mg/dL (7-18)
[2017-11-16 12:30] VITALS: BP 135/77
[2017-11-16 18:37] VITALS: BP 127/67
[2017-11-16] MEDS: AZITHROMYCIN 500 MG in SODIUM CHLORIDE 0.9% 250 ML IV SCH (22:24)
[2017-11-17 00:22] VITALS: BP 117/74
[2017-11-17] MEDS ORDERED: ALBUTEROL/IPRATROPIUM 2.5MG/0.5MG, 3 ML ONE (06:34)
[2017-11-17] MEDS: ASPIRIN 81 MG TABLET EC PO SCH (06:36)
[2017-11-17] MEDS: METOPROLOL SUCCINATE 50 MG TAB.ER.24H PO SCH (06:37)
[2017-11-17] MEDS: ALBUTEROL/IPRATROPIUM 2.5MG/0.5MG, 3 ML NPPB SCH ×2 (07:00→19:02)
[2017-11-17 07:40] VITALS: BP 126/74
[2017-11-17] MEDS: INSULIN ASPART 100 UNITS/ML, PEN SQ-INSULIN SCH ×4 (07:47→22:20)
[2017-11-17] MEDS: CEFTRIAXONE PMX 1GM/50ML 50 ML IV SCH (07:48)
[2017-11-17] MEDS: POTASSIUM CHLORIDE 20 MEQ TAB.ER.PRT PO SCH (07:48)
[2017-11-17] MEDS: CARBIDOPA/LEVODOPA 25 MG/100 MG TABLET PO SCH ×3 (07:49→21:25)
[2017-11-17] MEDS: FUROSEMIDE 40 MG TABLET PO SCH (07:49)
[2017-11-17] MEDS: GABAPENTIN 400 MG CAPSULE PO SCH ×3 (07:50→21:26)
[2017-11-17] MEDS: BENZONATATE 100 MG CAPSULE PO SCH ×3 (07:50→21:25)
[2017-11-17] MEDS: ENALAPRIL 10 MG TABLET PO SCH ×2 (07:51→21:26)
[2017-11-17] MEDS: ENOXAPARIN 40 MG/0.4 ML SQ SCH (11:08)
[2017-11-17 14:00] VITALS: BP 130/80
[2017-11-17 18:53] VITALS: BP 145/79
[2017-11-18 00:31] VITALS: BP 134/77
[2017-11-18 05:30] LABS: BLOOD UREA NITROGEN 29 mg/dL (7-18)
[2017-11-18] MEDS: ASPIRIN 81 MG TABLET EC PO SCH (05:49)
[2017-11-18] MEDS: METOPROLOL SUCCINATE 50 MG TAB.ER.24H PO SCH (05:49)
[2017-11-18 07:30] VITALS: BP 122/84
[2017-11-18] MEDS ORDERED: AcetaZOLAMIDE INJ 500 MG IVPush ONE (07:30)
[2017-11-18] MEDS: FUROSEMIDE 20 MG/2 ML IV SCH ×2 (08:58→16:40)
[2017-11-18] MEDS: INSULIN ASPART 100 UNITS/ML, PEN SQ-INSULIN SCH ×4 (08:58→20:16)
[2017-11-18] MEDS: ENALAPRIL 10 MG TABLET PO SCH ×2 (08:59→20:15)
[2017-11-18] MEDS: GABAPENTIN 400 MG CAPSULE PO SCH ×3 (09:00→20:15)
[2017-11-18] MEDS: SPIRONOLACTONE 50 MG TABLET PO SCH (09:00)
[2017-11-18] MEDS ORDERED: SPIRONOLACTONE 25 MG TABLET PO SCH (09:00)
[2017-11-18] MEDS: BENZONATATE 100 MG CAPSULE PO SCH ×3 (09:00→20:15)
[2017-11-18] MEDS: CARBIDOPA/LEVODOPA 25 MG/100 MG TABLET PO SCH ×3 (09:00→20:15)
[2017-11-18] MEDS: ENOXAPARIN 40 MG/0.4 ML SQ SCH (09:01)
[2017-11-18] MEDS: ALBUTEROL/IPRATROPIUM 2.5MG/0.5MG, 3 ML NPPB SCH ×2 (09:33→19:48)
[2017-11-18 13:30] VITALS: BP 128/85
[2017-11-18 19:00] VITALS: BP 122/68
[2017-11-18 19:22] VITALS: BP 127/60
[2017-11-19 02:05] VITALS: BP 126/66
[2017-11-19] MEDS: ASPIRIN 81 MG TABLET EC PO SCH (05:45)
[2017-11-19] MEDS: METOPROLOL SUCCINATE 50 MG TAB.ER.24H PO SCH (05:45)
[2017-11-19 06:10] LABS: BLOOD UREA NITROGEN 30 mg/dL (7-18)
[2017-11-19 07:25] VITALS: BP 133/77
[2017-11-19] MEDS ORDERED: SPIR50TA PO (08:13)
[2017-11-19] MEDS ORDERED: ASPI-621 PO (08:13)
[2017-11-19] MEDS: INSULIN ASPART 100 UNITS/ML, PEN SQ-INSULIN SCH ×4 (08:13→20:32)
[2017-11-19] MEDS ORDERED: METO-93 PO (08:13)
[2017-11-19] MEDS ORDERED: FURO40TA6 PO (08:13)
[2017-11-19] MEDS: SPIRONOLACTONE 50 MG TABLET PO SCH (08:14)
[2017-11-19] MEDS: BENZONATATE 100 MG CAPSULE PO SCH ×3 (08:14→20:30)
[2017-11-19] MEDS: CARBIDOPA/LEVODOPA 25 MG/100 MG TABLET PO SCH ×3 (08:14→20:30)
[2017-11-19] MEDS: ENALAPRIL 10 MG TABLET PO SCH ×2 (08:14→20:31)
[2017-11-19] MEDS: FUROSEMIDE 20 MG/2 ML IV SCH ×2 (08:14→16:45)
[2017-11-19] MEDS: GABAPENTIN 400 MG CAPSULE PO SCH ×3 (08:14→20:30)
[2017-11-19] MEDS: ALBUTEROL/IPRATROPIUM 2.5MG/0.5MG, 3 ML NPPB SCH ×2 (09:00→20:12)
[2017-11-19] MEDS ORDERED: FLU VACC QS2017-18 (36MOS+) UP/PF 0.5 ML IM-VACC ONE (10:00)
[2017-11-19] MEDS: metFORMIN 500 MG TABLET PO SCH ×2 (10:30→20:30)
[2017-11-19] MEDS: ENOXAPARIN 40 MG/0.4 ML SQ SCH (10:31)
[2017-11-19 13:29] VITALS: BP 131/76
[2017-11-19 19:25] VITALS: BP 131/64
[2017-11-20 00:17] VITALS: BP 136/74
[2017-11-20 06:11] VITALS: BP 120/73
[2017-11-20] MEDS: ASPIRIN 81 MG TABLET EC PO SCH (06:12)
[2017-11-20] MEDS: METOPROLOL SUCCINATE 50 MG TAB.ER.24H PO SCH (06:12)
[2017-11-20] MEDS ORDERED: INSULIN DETEMIR 100 UNITS/ML, PEN SQ-INSULIN SCH (07:00)
[2017-11-20 07:10] LABS: BLOOD UREA NITROGEN 28 mg/dL (7-18)
[2017-11-20 07:11] VITALS: BP 129/73
[2017-11-20] MEDS: INSULIN ASPART 100 UNITS/ML, PEN SQ-INSULIN SCH ×2 (08:41→13:03)
[2017-11-20] MEDS: BENZONATATE 100 MG CAPSULE PO SCH (08:42)
[2017-11-20] MEDS: FUROSEMIDE 20 MG/2 ML IV SCH (08:42)
[2017-11-20] MEDS: ENALAPRIL 10 MG TABLET PO SCH (08:42)
[2017-11-20] MEDS: metFORMIN 500 MG TABLET PO SCH (08:43)
[2017-11-20] MEDS: CARBIDOPA/LEVODOPA 25 MG/100 MG TABLET PO SCH (08:43)
[2017-11-20] MEDS: GABAPENTIN 400 MG CAPSULE PO SCH (08:43)
[2017-11-20] MEDS: SPIRONOLACTONE 50 MG TABLET PO SCH (08:43)
[2017-11-20] MEDS: ENOXAPARIN 40 MG/0.4 ML SQ SCH (08:58)
[2017-11-20] MEDS: ALBUTEROL/IPRATROPIUM 2.5MG/0.5MG, 3 ML NPPB SCH (09:00)
== END 2017-11-20 14:53 | disposition home or self-care (01) | DRG 291 ==
LOC: ED 21:00 → EDIP 21:08 → 5SO 22:43
PROVIDERS: ADMIT Surgery; ATTEND Hospitalist
DX: I11.0 Hypertensive heart disease with heart failure (principal); J15.9 Unspecified bacterial pneumonia; J96.21 Acute and chronic respiratory failure with hypoxia; E43 Unspecified severe protein-calorie malnutrition; N17.9 Acute kidney failure, unspecified; L89.159 Pressure ulcer of sacral region, unspecified stage; E11.40 Type 2 diabetes mellitus with diabetic neuropathy, unspecified; D68.69 Other thrombophilia; E87.1 Hypo-osmolality and hyponatremia; R45.851 Suicidal ideations; E11.65 Type 2 diabetes mellitus with hyperglycemia; G20 Parkinson's disease; F32.9 Major depressive disorder, single episode, unspecified; F41.9 Anxiety disorder, unspecified; R45.850 Homicidal ideations; I48.2 Chronic atrial fibrillation; I50.43 Acute on chronic combined systolic (congestive) and diastolic (congestive) heart failure; I25.5 Ischemic cardiomyopathy; I25.10 Atherosclerotic heart disease of native coronary artery without angina pectoris; I49.1 Atrial premature depolarization; I44.7 Left bundle-branch block, unspecified; I25.2 Old myocardial infarction; Z86.718 Personal history of other venous thrombosis and embolism; Z95.810 Presence of automatic (implantable) cardiac defibrillator; Z87.440 Personal history of urinary (tract) infections; Z95.1 Presence of aortocoronary bypass graft; Z82.49 Family history of ischemic heart disease and other diseases of the circulatory system; Z82.3 Family history of stroke; Z79.899 Other long term (current) drug therapy; Z87.891 Personal history of nicotine dependence; Z91.19 Patient's noncompliance with other medical treatment and regimen; Z81.8 Family history of other mental and behavioral disorders; Z79.82 Long term (current) use of aspirin; Z68.30 Body mass index [BMI] 30.0-30.9, adult
CPT/HCPCS: 36415; 51102; 71010; 80048; 80053; 80061; 81001; 82010; 82040; 82803; 82962; 83605; 83735; 83880; 84100; 84145; 84484; 85025; 87040; 87070; 87086; 87205; 90686; 93005; 93306; 94640; J0456; J0696; J1650; J1815; J1940; J2405; J7620; Q0162; J1120; J3475; J7030; J7050; J7512

== ENCOUNTER 2018-07-21 09:10 | Emergency (ER) | payer SELFPAY ==
[~2018-07-21] VITALS: Ht 172.7 cm; Wt 68.0 kg
[~2018-07-21 09:10] MED LIST changes: -SPIR25TA3 PO; +SPIR25TA5 PO; +SPIR50TA PO; +WARF-36 PO; +WARF4TAB65 PO; -WARF4TAB7 PO; -WARF5TAB7 PO
[2018-07-21 09:12] VITALS: BP 128/60
== END 2018-07-21 12:56 | disposition home or self-care (01) ==
LOC: ED 10:23
DX: T83.091A Other mechanical complication of indwelling urethral catheter, initial encounter (principal); E11.9 Type 2 diabetes mellitus without complications; I25.2 Old myocardial infarction; G20 Parkinson's disease; I50.9 Heart failure, unspecified; I48.91 Unspecified atrial fibrillation; Z87.891 Personal history of nicotine dependence; X58.XXXA Exposure to other specified factors, initial encounter; Y93.89 Activity, other specified; Y92.89 Other specified places as the place of occurrence of the external cause; Y99.8 Other external cause status
CPT/HCPCS: 51702; 99284

== ENCOUNTER 2018-07-26 13:03 | Inpatient (IN) | payer OTHER ==
[~2018-07-26] VITALS: Ht 172.7 cm; Wt 77.8 kg
[2018-07-26] MEDS ORDERED: SODIUM CHLORIDE FLUSH 10ML SYR IVF ONE (13:30)
[2018-07-26 13:46] LABS: CULTURE INDICATED? YES; MICROSCOPIC INDICATED
[2018-07-26] MEDS ORDERED: ATOR20TA9 PO (13:47)
[2018-07-26] MEDS ORDERED: INSU100V13 SQ (13:47)
[2018-07-26] MEDS ORDERED: EMPA1TAB PO (13:47)
[2018-07-26] MEDS ORDERED: WARF6TAB47 PO (13:47)
[2018-07-26] MEDS ORDERED: CARV6.252 PO (13:47)
[2018-07-26] MEDS ORDERED: LISI-167 PO (13:47)
[2018-07-26 13:48] LABS: BASOPHILS # (AUTO) 0.06 x10^3/uL (0-0.1); BASOPHILS % (AUTO) 1 % (0-1); EOSINOPHILS # (AUTO) 0.24 x10^3/uL (0-0.4); EOSINOPHILS % (AUTO) 3 % (1-7); LYMPHOCYTES # (AUTO) 1.53 x10^3/uL (1-3.4); LYMPHOCYTES % (AUTO) 17 % (22-44); MD NO; MEAN CORPUSCULAR HEMOGLOBIN 27.1 pg (27.0-34.8); MEAN CORPUSCULAR HGB CONC 32.4 g/dL (32.4-35.8); MEAN CORPUSCULAR VOLUME 83.7 fL (80-100); MEAN PLATELET VOLUME 8.9 fL (7.4-10.4); MONOCYTES # (AUTO) 0.56 x10^3/uL (0.2-0.8); MONOCYTES % (AUTO) 6 % (2-9); NEUTROPHILS # (AUTO) 6.45 x10^3/uL (1.8-6.8); NEUTROPHILS % (AUTO) 73 % (42-75); PLATELET COUNT 333 x10^3/uL (130-400); RED BLOOD COUNT 3.65 x10^6/uL (3.82-5.3)
[2018-07-26 13:56] LABS: ALBUMIN 2.3 g/dL (3.4-5.0); CALCIUM 8.7 mg/dL (8.5-10.1); CHLORIDE 97 mmol/L (98-107)
[2018-07-26 14:00] LABS: INTERNATIONAL NORMALIZED RATIO 2.29 (0.93-1.1); PROTHROMBIN TIME 23.2 Seconds (9.6-11.5)
[2018-07-26 14:04] LABS: ANION GAP 8 mmol/L (5-15)
[2018-07-26] MEDS ORDERED: ONDANSETRON 2MG/ML, 2ML IVPush PRN (15:00)
[2018-07-26] MEDS ORDERED: ACETAMINOPHEN 325 MG TABLET PO PRN (15:00)
[2018-07-26] MEDS ORDERED: MORPHINE SULFATE 4 MG/ML, 1ML IVPush PRN (15:00)
[2018-07-26 15:14] VITALS: BP 116/65
[2018-07-26] MEDS ORDERED: CEFDINIR 300 MG CAPSULE PO STA (15:17)
[2018-07-26] MEDS ORDERED: ONDANSETRON ODT 4 MG PO PRN (15:30)
[2018-07-26] MEDS: SODIUM CHLORIDE 0.9% 1,000 ML IV SCH (15:49)
[2018-07-26] MEDS: CARBIDOPA/LEVODOPA 25 MG/100 MG TABLET PO SCH ×2 (16:01→21:57)
[2018-07-26] MEDS: GABAPENTIN 400 MG CAPSULE PO SCH ×2 (16:02→21:57)
[2018-07-26] MEDS: INSULIN LISPRO 100 UNITS/ML, PEN SQ-INSULIN SCH ×2 (18:27→22:01)
[2018-07-26 19:59] VITALS: BP 111/71
[2018-07-26] MEDS: ATORVASTATIN 40 MG TABLET PO SCH (21:57)
[2018-07-27 03:07] VITALS: BP 119/56
[2018-07-27] MEDS: SODIUM CHLORIDE 0.9% 1,000 ML IV SCH ×2 (03:48→16:13)
[2018-07-27 04:56] LABS: BASOPHILS # (AUTO) 0.05 x10^3/uL (0-0.1); BASOPHILS % (AUTO) 1 % (0-1); EOSINOPHILS # (AUTO) 0.21 x10^3/uL (0-0.4); EOSINOPHILS % (AUTO) 3 % (1-7); LYMPHOCYTES # (AUTO) 1.79 x10^3/uL (1-3.4); LYMPHOCYTES % (AUTO) 21 % (22-44); MD NO; MEAN CORPUSCULAR HEMOGLOBIN 27.3 pg (27.0-34.8); MEAN CORPUSCULAR HGB CONC 33.1 g/dL (32.4-35.8); MEAN CORPUSCULAR VOLUME 82.4 fL (80-100); MEAN PLATELET VOLUME 8.4 fL (7.4-10.4); MONOCYTES # (AUTO) 0.58 x10^3/uL (0.2-0.8); MONOCYTES % (AUTO) 7 % (2-9); NEUTROPHILS # (AUTO) 6.01 x10^3/uL (1.8-6.8); NEUTROPHILS % (AUTO) 70 % (42-75); PLATELET COUNT 309 x10^3/uL (130-400); RED BLOOD COUNT 3.75 x10^6/uL (3.82-5.3); RED CELL DISTRIBUTION WIDTH 21.5 % (9.6-15.2)
[2018-07-27 05:04] LABS: INTERNATIONAL NORMALIZED RATIO 1.97 (0.93-1.1)
[2018-07-27 05:09] LABS: ANION GAP 5 mmol/L (5-15); CALCIUM 8.6 mg/dL (8.5-10.1); CHLORIDE 100 mmol/L (98-107); CREATININE 0.64 mg/dL (0.55-1.02)
[2018-07-27 05:20] LABS: CHOL/HDL RATIO 3.2; CHOLESTEROL, TOTAL 123 mg/dL (140-239); HDL CHOL % 32 % (28-40); HDL CHOLESTEROL (DIRECT) 39 mg/dL (40-60); LDL CHOLESTEROL,CALCULATED 59 mg/dL (54-169); LDL/HDL RATIO 1.5 (0.5-3.0); THYROID STIMULATING HORMONE 0.629 mIU/L (0.358-3.740); TRIGLYCERIDES 125 mg/dL (50-200); VLDL CHOLESTEROL 25 mg/dL (0-25)
[2018-07-27] MEDS: INSULIN LISPRO 100 UNITS/ML, PEN SQ-INSULIN SCH ×4 (07:00→20:20)
[2018-07-27] MEDS: CARVEDILOL 6.25 MG TABLET PO SCH (09:00)
[2018-07-27] MEDS: POLYETHYLENE GLYCOL 17 GM PACKET PO SCH (09:00)
[2018-07-27 09:40] VITALS: BP 119/61
[2018-07-27] MEDS: CARBIDOPA/LEVODOPA 25 MG/100 MG TABLET PO SCH ×3 (09:40→20:17)
[2018-07-27] MEDS: ASPIRIN 81 MG TABLET CHEW PO SCH (09:40)
[2018-07-27] MEDS: GABAPENTIN 400 MG CAPSULE PO SCH ×3 (09:40→20:17)
[2018-07-27] MEDS: LISINOPRIL 10 MG TABLET PO SCH (09:43)
[2018-07-27 13:37] VITALS: BP 111/86
[2018-07-27] MEDS: CEFTRIAXONE 1,000 MG in SODIUM CHLORIDE 0.9% 50 ML IV SCH (14:53)
[2018-07-27 18:34] VITALS: BP 113/64
[2018-07-27] MEDS: ATORVASTATIN 40 MG TABLET PO SCH (20:17)
[2018-07-28 02:10] VITALS: BP 126/74
[2018-07-28] MEDS: ASPIRIN 81 MG TABLET CHEW PO SCH (06:12)
[2018-07-28] MEDS: SODIUM CHLORIDE 0.9% 1,000 ML IV SCH ×2 (06:13→21:13)
[2018-07-28 07:46] VITALS: BP 124/69
[2018-07-28] MEDS: GABAPENTIN 400 MG CAPSULE PO SCH ×3 (08:13→21:13)
[2018-07-28] MEDS: LISINOPRIL 10 MG TABLET PO SCH (08:13)
[2018-07-28] MEDS: CARBIDOPA/LEVODOPA 25 MG/100 MG TABLET PO SCH ×3 (08:13→21:13)
[2018-07-28] MEDS: INSULIN LISPRO 100 UNITS/ML, PEN SQ-INSULIN SCH ×4 (08:13→21:39)
[2018-07-28] MEDS: POLYETHYLENE GLYCOL 17 GM PACKET PO SCH (08:14)
[2018-07-28] MEDS: CARVEDILOL 6.25 MG TABLET PO SCH (08:14)
[2018-07-28 12:57] VITALS: BP 112/67
[2018-07-28] MEDS: CEFTRIAXONE 1,000 MG in SODIUM CHLORIDE 0.9% 50 ML IV SCH (14:14)
[2018-07-28 19:34] VITALS: BP 147/64
[2018-07-28] MEDS: ATORVASTATIN 40 MG TABLET PO SCH (21:13)
[2018-07-29 00:24] VITALS: BP 127/71
[2018-07-29] MEDS: ASPIRIN 81 MG TABLET CHEW PO SCH (05:14)
[2018-07-29 07:40] VITALS: BP 127/64
[2018-07-29] MEDS: POLYETHYLENE GLYCOL 17 GM PACKET PO SCH (08:53)
[2018-07-29] MEDS: CARBIDOPA/LEVODOPA 25 MG/100 MG TABLET PO SCH ×3 (09:05→20:45)
[2018-07-29] MEDS: GABAPENTIN 400 MG CAPSULE PO SCH ×3 (09:05→20:45)
[2018-07-29] MEDS: SPIRONOLACTONE 25 MG TABLET PO SCH (09:05)
[2018-07-29] MEDS: CARVEDILOL 6.25 MG TABLET PO SCH (09:06)
[2018-07-29] MEDS: SODIUM CHLORIDE 0.9% 1,000 ML IV SCH (09:06)
[2018-07-29] MEDS: LISINOPRIL 10 MG TABLET PO SCH (09:06)
[2018-07-29] MEDS: INSULIN LISPRO 100 UNITS/ML, PEN SQ-INSULIN SCH ×4 (09:07→21:03)
[2018-07-29] MEDS: CEFTRIAXONE 1,000 MG in SODIUM CHLORIDE 0.9% 50 ML IV SCH (13:30)
[2018-07-29 13:31] VITALS: BP 119/62
[2018-07-29 19:09] VITALS: BP 113/70
[2018-07-29] MEDS: ATORVASTATIN 40 MG TABLET PO SCH (20:45)
[2018-07-30 01:03] VITALS: BP 138/66
[2018-07-30] MEDS: ASPIRIN 81 MG TABLET CHEW PO SCH (05:24)
[2018-07-30] MEDS: POLYETHYLENE GLYCOL 17 GM PACKET PO SCH (07:23)
[2018-07-30 07:45] VITALS: BP 135/78
[2018-07-30] MEDS: LISINOPRIL 10 MG TABLET PO SCH (09:27)
[2018-07-30] MEDS: CARBIDOPA/LEVODOPA 25 MG/100 MG TABLET PO SCH ×3 (09:27→21:59)
[2018-07-30] MEDS: GABAPENTIN 400 MG CAPSULE PO SCH ×3 (09:27→21:58)
[2018-07-30] MEDS: SPIRONOLACTONE 25 MG TABLET PO SCH (09:27)
[2018-07-30] MEDS: CARVEDILOL 6.25 MG TABLET PO SCH (09:28)
[2018-07-30] MEDS: INSULIN LISPRO 100 UNITS/ML, PEN SQ-INSULIN SCH ×4 (09:30→22:09)
[2018-07-30 14:00] VITALS: BP 145/65
[2018-07-30] MEDS: CEFTRIAXONE 1,000 MG in SODIUM CHLORIDE 0.9% 50 ML IV SCH (14:22)
[2018-07-30 20:29] VITALS: BP 147/73
[2018-07-30] MEDS: ATORVASTATIN 40 MG TABLET PO SCH (21:59)
[2018-07-31 00:44] VITALS: BP 122/66
[2018-07-31] MEDS: ASPIRIN 81 MG TABLET CHEW PO SCH (05:33)
[2018-07-31 07:15] VITALS: BP 127/71
[2018-07-31] MEDS: POLYETHYLENE GLYCOL 17 GM PACKET PO SCH (07:21)
[2018-07-31] MEDS: SPIRONOLACTONE 25 MG TABLET PO SCH (09:44)
[2018-07-31] MEDS: LISINOPRIL 10 MG TABLET PO SCH (09:44)
[2018-07-31] MEDS: CARBIDOPA/LEVODOPA 25 MG/100 MG TABLET PO SCH ×3 (09:44→20:48)
[2018-07-31] MEDS: GABAPENTIN 400 MG CAPSULE PO SCH ×3 (09:44→20:48)
[2018-07-31] MEDS: CARVEDILOL 6.25 MG TABLET PO SCH (09:45)
[2018-07-31] MEDS: INSULIN LISPRO 100 UNITS/ML, PEN SQ-INSULIN SCH ×4 (09:47→20:52)
[2018-07-31] MEDS: CEFTRIAXONE 1,000 MG in SODIUM CHLORIDE 0.9% 50 ML IV SCH (13:25)
[2018-07-31 13:27] VITALS: BP 126/71
[2018-07-31 20:00] VITALS: BP 150/72
[2018-07-31] MEDS: ATORVASTATIN 40 MG TABLET PO SCH (20:48)
[2018-08-01 01:19] VITALS: BP 132/65
[2018-08-01] MEDS: ASPIRIN 81 MG TABLET CHEW PO SCH (05:05)
[2018-08-01 07:43] VITALS: BP 120/68
[2018-08-01] MEDS: INSULIN LISPRO 100 UNITS/ML, PEN SQ-INSULIN SCH ×4 (08:39→21:22)
[2018-08-01] MEDS: CARVEDILOL 6.25 MG TABLET PO SCH (08:40)
[2018-08-01] MEDS: LISINOPRIL 10 MG TABLET PO SCH (08:40)
[2018-08-01] MEDS: GABAPENTIN 400 MG CAPSULE PO SCH ×3 (08:40→21:23)
[2018-08-01] MEDS: SPIRONOLACTONE 25 MG TABLET PO SCH (08:40)
[2018-08-01] MEDS: POLYETHYLENE GLYCOL 17 GM PACKET PO SCH (08:40)
[2018-08-01] MEDS: CARBIDOPA/LEVODOPA 25 MG/100 MG TABLET PO SCH ×3 (10:42→21:23)
[2018-08-01] MEDS: CEFTRIAXONE 1,000 MG in SODIUM CHLORIDE 0.9% 50 ML IV SCH (14:16)
[2018-08-01 16:28] VITALS: BP 135/73
[2018-08-01 20:00] VITALS: BP 132/71
[2018-08-01] MEDS: ATORVASTATIN 40 MG TABLET PO SCH (21:23)
[2018-08-02 02:00] VITALS: BP 138/68
[2018-08-02] MEDS: ASPIRIN 81 MG TABLET CHEW PO SCH (05:21)
[2018-08-02 07:33] VITALS: BP 126/69
[2018-08-02] MEDS: POLYETHYLENE GLYCOL 17 GM PACKET PO SCH (08:40)
[2018-08-02] MEDS: GABAPENTIN 400 MG CAPSULE PO SCH ×3 (08:55→20:28)
[2018-08-02] MEDS: CARBIDOPA/LEVODOPA 25 MG/100 MG TABLET PO SCH ×3 (08:55→20:28)
[2018-08-02] MEDS: SPIRONOLACTONE 25 MG TABLET PO SCH (08:55)
[2018-08-02] MEDS: CARVEDILOL 6.25 MG TABLET PO SCH (08:56)
[2018-08-02] MEDS: LISINOPRIL 10 MG TABLET PO SCH (08:56)
[2018-08-02] MEDS: INSULIN LISPRO 100 UNITS/ML, PEN SQ-INSULIN SCH ×4 (09:00→20:29)
[2018-08-02 12:38] LABS: HEMOGLOBIN A1C 14.9 % (4.2-6.3)
[2018-08-02 12:48] VITALS: BP 100/60
[2018-08-02] MEDS: CEFTRIAXONE 1,000 MG in SODIUM CHLORIDE 0.9% 50 ML IV SCH (13:42)
[2018-08-02 20:00] VITALS: BP 117/63
[2018-08-02] MEDS: ATORVASTATIN 40 MG TABLET PO SCH (20:28)
[2018-08-03 02:00] VITALS: BP 137/67
[2018-08-03] MEDS: ASPIRIN 81 MG TABLET CHEW PO SCH (06:09)
[2018-08-03 06:33] LABS: ANION GAP 5 mmol/L (5-15); CALCIUM 9.2 mg/dL (8.5-10.1); CHLORIDE 101 mmol/L (98-107)
[2018-08-03 07:22] VITALS: BP 120/69
[2018-08-03 08:04] VITALS: BP 107/66
[2018-08-03] MEDS: CARBIDOPA/LEVODOPA 25 MG/100 MG TABLET PO SCH ×2 (08:04→16:18)
[2018-08-03] MEDS: GABAPENTIN 400 MG CAPSULE PO SCH ×2 (08:04→16:18)
[2018-08-03] MEDS: POLYETHYLENE GLYCOL 17 GM PACKET PO SCH (08:05)
[2018-08-03] MEDS: SPIRONOLACTONE 25 MG TABLET PO SCH (08:05)
[2018-08-03] MEDS: LISINOPRIL 10 MG TABLET PO SCH (08:05)
[2018-08-03] MEDS: CARVEDILOL 6.25 MG TABLET PO SCH (08:05)
[2018-08-03] MEDS: INSULIN LISPRO 100 UNITS/ML, PEN SQ-INSULIN SCH ×3 (08:06→16:19)
[2018-08-03] MEDS ORDERED: SULF1TAB24 PO (09:03)
[2018-08-03] MEDS ORDERED: POLY17PO5 PO (09:03)
[2018-08-03] MEDS ORDERED: AMPI500C2 PO (09:03)
[2018-08-03] MEDS ORDERED: RIVA20TA PO (09:03)
[2018-08-03] MEDS ORDERED: SPIR25TA PO (09:04)
[2018-08-03] MEDS ORDERED: SULFAMETH./TRIMETHOPRIM DS 800MG/160MG TABLET PO SCH (09:30)
[2018-08-03] MEDS ORDERED: INSU100V13 SQ (09:39)
[2018-08-03] MEDS ORDERED: AMPICILLIN 500MG CAPSULE PO SCH (11:00)
[2018-08-03 12:17] VITALS: BP 109/65
== END 2018-08-03 16:38 | disposition hospice, home (50) | DRG 280 ==
LOC: ED 14:10 → EDIP 14:22 → 5SO 15:08
PROVIDERS: ADMIT Hospitalist; ATTEND Hospitalist
PROC: 0T9B70Z Drainage of Bladder with Drainage Device, Via Natural or Artificial Opening (ICD-10-PCS; principal; 2018-07-26)
PROC: 4B02XTZ Measurement of Cardiac Defibrillator, External Approach (ICD-10-PCS; 2018-07-28)
DX: I21.4 Non-ST elevation (NSTEMI) myocardial infarction (principal); E43 Unspecified severe protein-calorie malnutrition; I50.23 Acute on chronic systolic (congestive) heart failure; T83.83XA Hemorrhage due to genitourinary prosthetic devices, implants and grafts, initial encounter; D68.69 Other thrombophilia; J96.11 Chronic respiratory failure with hypoxia; B96.1 Klebsiella pneumoniae [K. pneumoniae] as the cause of diseases classified elsewhere; D63.8 Anemia in other chronic diseases classified elsewhere; E11.51 Type 2 diabetes mellitus with diabetic peripheral angiopathy without gangrene; E78.5 Hyperlipidemia, unspecified; G20 Parkinson's disease; I11.0 Hypertensive heart disease with heart failure; D50.0 Iron deficiency anemia secondary to blood loss (chronic); B95.62 Methicillin resistant Staphylococcus aureus infection as the cause of diseases classified elsewhere; I25.10 Atherosclerotic heart disease of native coronary artery without angina pectoris; B95.2 Enterococcus as the cause of diseases classified elsewhere; I25.5 Ischemic cardiomyopathy; I44.7 Left bundle-branch block, unspecified; K76.9 Liver disease, unspecified; I48.0 Paroxysmal atrial fibrillation; Z51.5 Encounter for palliative care; J44.9 Chronic obstructive pulmonary disease, unspecified; N30.91 Cystitis, unspecified with hematuria; Y83.8 Other surgical procedures as the cause of abnormal reaction of the patient, or of later complication, without mention of misadventure at the time of the procedure; I25.2 Old myocardial infarction; Z79.01 Long term (current) use of anticoagulants; Z79.4 Long term (current) use of insulin; Z91.14 Patient's other noncompliance with medication regimen; Z95.1 Presence of aortocoronary bypass graft; Z95.810 Presence of automatic (implantable) cardiac defibrillator; Z99.81 Dependence on supplemental oxygen; Z89.421 Acquired absence of other right toe(s); Z87.01 Personal history of pneumonia (recurrent); Z87.891 Personal history of nicotine dependence; Z68.26 Body mass index [BMI] 26.0-26.9, adult; Y92.89 Other specified places as the place of occurrence of the external cause
CPT/HCPCS: 36415; 71045; 80048; 80061; 81001; 82040; 82962; 83036; 83735; 84100; 84443; 84484; 85025; 85610; 87077; 87086; 87186; 93005; 93306; 93922; 93925; 99285; G0378; J0696; J1815; J7030